=== PATIENT | male | born 1955 | race Caucasian/White ===

== ENCOUNTER 2016-07-21 17:17 | Emergency (ER) | payer MEDICARE ==
[~2016-07-21] VITALS: Wt 80.0 kg
[~2016-07-21 17:17] MED LIST: ASPI-781 PO; BENA40TA54 PO; CHOLESTEROL MED PO; CLOP75TA27 PO; GABA100C14 PO; LORA10CA PO; LORA10TA72 PO; METO25TA7 PO
[2016-07-21] MEDS ORDERED: CIPR500T4 PO (17:31)
--- NOTE | 2016-07-21 17:32 | ERD ---
ER Documentation Chief Complaint Date/Time DATE: 07/21/16 TIME: 17:32 Chief Complaint MED REFILL FOR CIPRO POSSIBLE EXPOSURE TO MENINGITIS HPI This is a man who is here for exposure to meningitis. He is taking care of a neighbor who brought in today patito. The patient is asymptomatic and is here for prophylactic exposure treatment ROS All systems reviewed and are negative except as per history of present illness. Medications Home Meds Active Scripts Ciprofloxacin Hcl* (Ciprofloxacin Hcl*) 500 Mg Tablet, 500 MG PO now for 1 Day, #1 TAB Prov:NADEEM SONI DO 07/21/16 Aspirin* (Ecotrin*) 325 Mg Tabec, 325 MG PO DAILY for 28 Days, BOTTLE Prov:HARSH QIU MD 06/12/15 Reported Medications Gabapentin* (Gabapentin*) 100 Mg Capsule, 100 MG PO TID, CAP 08/28/13 Loratadine* (Claritin*) 10 Mg Capsule, 10 MG PO DAILY, CAP 08/28/13 Loratadine* (Loratadine* ODT) 10 Mg/Tab Tab.rapdis, 10 MG PO DAILY 08/28/13 Clopidogrel Bisulfate (Clopidogrel) 75 Mg Tablet, 75 MG PO DAILY, TAB 08/28/13 [Cholesterol Med] No Conflict Check, PO DAILY 03/21/13 Benazepril Hcl* (Lotensin*) 40 Mg Tablet, 10 MG PO DAILY 03/21/13 Metoprolol Succinate* (Toprol XL*) 25 Mg Tab.sr.24h, 25 MG PO DAILY 03/21/13 Allergies Allergies: Coded Allergies: No Known Allergy (Unverified , 08/28/13) PMhx/Soc Anesthesia Reaction: No Hx Neurological Disorder: No Hx Respiratory Disorders: No Hx Psychiatric Problems: No Hx Miscellaneous Medical Probl: No Hx Alcohol Use: No Hx Substance Use: No Hx Tobacco Use: No FmHx Family History: No coronary disease Physical Exam Vitals Vital Signs Date Time Temp Pulse Resp B/P Pulse Ox O2 Delivery O2 Flow Rate FiO2 07/21/16 17:20 98.8 80 21 139/71 99 Physical Exam Const: [] Head: Atraumatic Eyes: Normal Conjunctiva ENT: Normal External Ears, Nose and Mouth. Neck: Full range of motion..~ No meningismus. Resp: Clear to auscultation bilaterally Cardio: Regular rate and rhythm, no murmurs Abd: Soft, non tender, non distended. Normal bowel sounds Skin: No petechiae or rashes Back: No midline or flank tenderness Ext: No cyanosis, or edema Neur: Awake and alert Psych: Normal Mood and Affect Procedures/MDM 500 mg Cipro 1 Departure Diagnosis: Primary Impression: Meningitis exposure Condition: Stable Patient Instructions: Bacterial Meningitis NADEEM SONI DO Jul 21, 2016 17:32
== END 2016-07-21 18:00 | disposition home or self-care (01) ==
LOC: E/R 17:17
DX: Z20.811 Contact with and (suspected) exposure to meningococcus (principal); Z79.82 Long term (current) use of aspirin
CPT/HCPCS: 99283

== ENCOUNTER 2017-12-03 05:05 | Emergency (ER) | END 2017-12-03 05:45 | disposition home or self-care (01) ==

== ENCOUNTER 2017-12-04 05:35 | Emergency (ER) | END 2017-12-04 06:30 | disposition home or self-care (01) ==

== ENCOUNTER 2018-01-02 07:18 | Day surgery (SDC) | END 2018-01-02 17:52 | disposition home or self-care (01) ==